=== PATIENT | female | born 2000 | race Caucasian/White ===

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

== ENCOUNTER 2023-06-26 01:16 | Observation (INO) ==
[2023-06-26] MEDS ORDERED: VANCOMYCIN CONSULT ACTIVE PRN (01:38)
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
[2023-06-26] MEDS: MoRPHine SULFATE 4 MG/ML 1 ML CARP\\VIAL IV STA (01:57)
[2023-06-26] MEDS: ONDANSETRON INJ 2 MG/ML 2 ML VIAL IV STA (01:57)
[2023-06-26 01:58] LABS: Hematocrit (blood only) 40.9 % (37.0-47.0); Hemoglobin 13.2 g/dl (12.0-16.0); Mean Corpuscular Hemoglobin 27.6 pg (25.0-34.0); Mean Corpuscular Hgb Conc 32.3 g/dL (32.0-36.0); Mean Corpuscular Volume 85.4 fL (80.0-100.0); Mean Platelet Volume 10.3 fL (9.4-12.4); Platelet Count 385 K/uL (130-400); RDW Coefficient of Variation 13.9 % (11.5-14.5); RDW Standard Deviation 43.6 fL (36.4-46.3); Red Blood Count 4.79 M/uL (4.20-5.40); White Blood Count 5.66 K/ul (4.8-10.8)
[2023-06-26] MEDS: cefTRIAXone SODIUM 2,000 MG/50 ML BAG IV STA (02:15)
[2023-06-26] MEDS: VANCOMYCIN HCL 2,000 MG in SODIUM CHLORIDE 0.9% 500 ML IV ONE (03:15)
[2023-06-26 04:10] LABS: ALC (manual) 3.45 K/uL (1.2-3.4); ANC (manual) 1.81 K/uL (1.4-6.5); Alanine Aminotransferase 16 U/L (7-52); Albumin Level 4.1 gm/dl (3.4-5.0); Alkaline Phosphatase 65 U/L (34-104); Anion Gap 10 (3-11); Aspartate Aminotransferase 15 U/L (13-39); BUN Creatinine Ratio 16.2 (10-20); Bilirubin Direct 0.1 mg/dl (0-0.2); Bilirubin,Total 0.2 mg/dl (0.2-1.0); Blood Urea Nitrogen 11 mg/dl (6-23); C Reactive Protein 0.87 mg/dl (0-0.5); Calcium 9.3 mg/dl (8.6-10.3); Carbon Dioxide 21 mmol/L (21-32); Chloride 107 mmol/L (98-107); Est GFR (African American) 143.9 ml/min; Est GFR (Non-African American) 124.2 ml/min; Glucose 100 mg/dl (70-99(Fasting)); Large Granular Lymph # (manua 0.96 K/uL; Large Granular Lymph % (manual) 17 %; Lymphocytes # (manual) 2.49 K/uL (1.2-3.4); Lymphocytes % (manual) 44 %; Magnesium 1.9 mg/dl (1.7-2.4); Monocytes % (manual) 7 %; Neutrophils # (manual) 1.81 K/uL (1.40-6.50); Neutrophils % (manual) 32 %; Potassium 4.1 mmol/L (3.5-5.1); RBC Morphology Unremarkable; Sodium 138 mmol/L (136-145); Total Protein 7.6 gm/dl (6.0-8.3)
--- NOTE | 2023-06-26 06:05 | Ultrasound Report ---
Exam(s): US VENOUS RIGHT LOWER EXTREMITY EXAM: US Duplex Right Lower Extremity Veins CLINICAL HISTORY: Pain TECHNIQUE: Real-time duplex ultrasound scan of the right lower extremity veins integrating B-mode two-dimensional vascular structure, Doppler spectral analysis, color flow Doppler imaging and compression. COMPARISON: 01/03/23 FINDINGS: Deep veins: Unremarkable. No Deep vein thrombosis in the visualized common femoral, femoral, proximal deep femoral or popliteal veins. The veins demonstrate normal color flow, are normally compressible, with normal phasic flow and/or augmentation response. Superficial veins: Unremarkable. No thrombus in the visualized great saphenous vein. Soft tissues: No acute findings. No popliteal cyst. IMPRESSION: No deep vein thrombosis of the right lower extremity. Electronically signed by: Michelle Lorenzo MD 06/26/23 03:56 AM
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
--- NOTE | 2023-06-26 07:14 | XRay Report ---
XR chest 1V portable CLINICAL HISTORY: Sepsis. COMPARISON STUDY: Chest radiograph April 18, 2022. FINDINGS: Lung volumes are normal. Lungs are clear. There is no pneumothorax or pleural effusion. Car diac size is normal. Mediastinal contours are normal. There is no evidence for pulmonary edema. IMPRESSION: No acute cardiopulmonary findings. ACT 112: Negative or not required by law. Electronically signed by: Cale Noguera M.D. 06/26/2023 7:13 AM
--- NOTE | 2023-06-26 07:20 | XRay Report ---
XR ankle RT min 3V routine CLINICAL HISTORY: Right heel pain. COMPARISON STUDY: Right ankle MRI 12/30/2022. FINDINGS: Soft tissue swelling within the right ankle. No acute fracture or dislocation. There is a 6 mm osteochondral defect at the lateral talar dome. The calcaneus is intact. Cortical irregularity at the anterior aspect of the distal tibia suggestive of subacute/healing fracture. IMPRESSION: 1. Cortical irregularity at the anterior aspect of the distal tibia suggestive of a subacute/healing fracture. 2. Otherwise, no acute fracture or dislocation within the right ankle. 3. Diffuse soft tissue swelling. 4. A 6 mm osteochondral defect at the lateral talar dome. ACT 112: Negative or not required by law. Electronically signed by: Jono Sherwood M.D. 06/26/2023 7:18 AM
[2023-06-26] MEDS: ACETAMINOPHEN 325 MG TAB PO PRN (09:25)
[2023-06-26] MEDS: SODIUM CHLORIDE 0.9% 1,000 ML IV SCH (09:28)
[2023-06-26] MEDS: Patient's HEIGHT &/or WEIGHT Needed STA (09:29)
--- NOTE | 2023-06-26 09:47 | Pharmacy Report ---
Pharmacy PK ABX Note - Date of Service June 26, 2023 - Assessment and Plan Assessment 22 year old F receiving ceftriaxone/vancomycin for treatment of possible ankle infection- post surgical intervention 2 weeks ago. Pertinent microbiologic data includes: blood cultures pending. Day # 1 of antimicrobial therapy. Plan Vancomycin * Loading dose: 2000 mg IV x 1 * Maintenance dose: 1250 mg IV every 8 hours * Regimen is predicted to achieve target AUC/DEV of 400-600 mg/L.hr * Trough level ordered for: 06/27/23 @1030 Pharmacy will continue to follow and will adjust dose/frequency as necessary. Thank you. Pharmacy has transitioned to AUC monitoring for vancomycin. AUC/DEV is the preferred PK/PD target and is associated with decreased risk of nephrotoxicity compared to traditional trough targets.
[2023-06-26] MEDS: VANCOMYCIN HCL 1,250 MG in SODIUM CHLORIDE 0.9% 250 ML IV SCH (10:39)
[2023-06-26] MEDS: RIVAROXABAN 10 MG TABLET PO SCH (11:28)
--- OUTSIDE RECORDS SUMMARY | 2023-06-26 13:18 | External Medical Summary | Summary of Care ---
Author Name Unknown Organization [facility] Address [address] [place] [address] Phone [phone] Care Team Providers Care Professor Of Medicine Name Role Phone Cherie Scott MD Primary Care Provider Reason for Visit * Reason Comments Acute Right ear infection. Was at the ER yesterday. Pt was given drops and told to f/u if things got worse. Pt to have surgery on for something else and does not want to have to change it. Encounter Details Date Type Department Care Team (Latest Contact Info) Description 06/08/2023 2:00 PM EDT Convenient Care Visit [facility] [address] [place] [address] Payal Parr CRNP [address] [place] [address] Acute mucoid otitis media of both ears* Allergies No known active allergiesdocumented as of this encounter (statuses as of 06/08/2023) Medications Medication Sig Dispensed Refills Start Date End Date Status EMOQUETTE 0.15-30 MG-MCG per tablet Take 1 Tablet by mouth in the morning. One tablet daily. 0 10/25/2014 Active Acetaminophen 500 MG Oral Tablet Take 2 Tablets by mouth every 6 hours as needed. 0 Active Ibuprofen 100 MG Oral Tablet Chewable (Motrin) Take 1 Tablet by mouth every 6 hours as needed. 0 Active Semaglutide-Weight Management 0.25 MG/0.5ML Subcutaneous Solution Auto-injectorIndica tions:Body mass index (BMI) of 45.0 to 49.9 in adult (HCC) Inject 0.25 mg under the skin once a week. 2 mL 2 01/23/2023 Active Meclizine HCl 25 MG Oral Tablet (Antivert)Indicatio ns:Benign paroxysmal positional vertigo, unspecified laterality Take 1 Tablet by mouth 3 times a day as needed for Dizziness. 30 Tablet 0 01/31/2023 Active Additional Information Patient not taking.Reported on 06/08/2023 traZODone HCl 50 MG Oral Tablet (Desyrel) Take 1 Tablet by mouth at bedtime as needed for Sleep. 30 Tablet 0 04/08/2023 Active Additional Information Patient not taking.Reported on 06/08/2023 Escitalopram Oxalate 20 MG Oral Tablet (Lexapro) Take 1 Tablet by mouth in the morning. 30 Tablet 1 04/29/2023 Active busPIRone HCl 5 MG Oral Tablet (Buspar) Take 1 Tablet by mouth 2 times a day. May also take 1 Tablet daily as needed for Anxiety. 90 Tablet 1 04/29/2023 Active Prazosin HCl 1 MG Oral Capsule (Minipress) Take 1 Capsule by mouth at bedtime. 30 Capsule 1 04/29/2023 Active Additional Information Patient not taking.Reported on 06/08/2023 Ciprofloxacin-dexAM ETHasone 0.3-0.1 % Otic Suspension (Cipro-Dex) 4 Drops in the morning and 4 Drops before bedtime. 0 06/08/2023 Active Amoxicillin-Pot Clavulanate 875-125 MG Oral Tablet (Augmentin)Indicati ons:Acute mucoid otitis media of both ears Take 1 Tablet by mouth in the morning and 1 Tablet before bedtime. Do all this for 10 days. 20 Tablet 0 06/08/2023 06/18/2023 Active Ibuprofen 800 MG Oral Tablet (Motrin)Indications :Acute mucoid otitis media of both ears Take 1 Tablet by mouth in the morning and 1 Tablet at noon and 1 Tablet before bedtime. with food for pain. 30 Tablet 1 06/08/2023 Active documented as of this encounter (statuses as of 06/08/2023) Active Problems Problem Noted Date Diagnosed Date PTSD (post-traumatic stress disorder) 01/15/2023 DELANEY (generalized anxiety disorder) 01/15/2023 Moderate episode of recurrent major depressive d isorder 01/15/2023 Body mass index (BMI) of 45.0 to 49.9 in adult 0 04/08/2022 Overview: Per Obesity protocol Fibroadenoma of breast, left 12/31/2021 Overview: Phylloides tumor, 2018. ?on R later, clip in place. [employer] at [employer]. Allergic rhinitis 12/12/2014 Allergic conjunctivitis 12/12/2014 Exercise-induced asthma 12/12/2014 documented as of this encounter (statuses as of 06/08/2023) Immunizations Name Administration Dates Next Due COVID-19 mRNA, LNP-s, No Pre serve, 2-Dose Series (Moderna) 07/15/2020,06/17/2020 COVID-19, mRNA, LNP-s, PF, B ooster, 100mcg/0.5mg (Moderna) 03/19/2021 HPV Vaccine, 4-Valent 05/10/2016 Meningococcal B, 2/3-Dose Series (TRUMENBA) 05/02 TDAP (age 10 and older)(Boostrix) 12/20/2022 documented as of this encounter Social History Tobacco Use Types Packs/Day Years Used Date Smoking Tobacco: Never Smokeless Tobacco: Never Comments:no passive smoke Alcohol Use Standard Drinks/Week Comments No 0 (1 standard drink = 0.6 oz pur e alcohol) PHQ-2 Answer Date Recorded PHQ Adult Total Score 10 01/14/2023 Hunger Vital Sign Answer Date Recorded Within the past 12 months, y ou worried that your food would run out before you got the money to buy more. Never true 01/01/20 Within the past 12 months, t he food you bought just didn't last and you didn't have money to get more. Never true 12/31/2021 Sex and Gender Information Value Date Recorded Sex Assigned at Female 12/31/2021 5:24 PM EDT Gender Identity Female 12/31/2021 5:24 PM EDT Sexual Orientation Straight 12/31/2021 5: 24 PM EDT Job Start Date Occupation Industry Not on file Not on file Not on file documented as of this encounter Last Filed Vital Signs Vital Sign Reading Time Taken Comments Blood Pressure 134/90 06/08/2023 1:50 PM EDT Pulse 76 06/08/2023 1:50 PM EDT Temperature 36.8 C (98.3 F) 06/08/2023 1:50 PM ED T Respiratory Rate 16 06/08/2023 1:50 PM EDT Oxygen Saturation 98% 06/08/2023 1:50 PM EDT Inhaled Oxygen Concentration - - Weight 147 kg (324 lb) 06/08/2023 1:50 PM EDT Height 172.7 cm (5' 8") 06/08/2023 1:50 PM EDT Body Mass Index 49.26 06/08/2023 1:50 PM EDT documented in this encounter Progress Notes * Payal Parr CRNP - 06/08/2023 2:09 PM EDT Subjective Nica Pillai is a 22 year old female that presents for Acute (Right ear infection. Was at the ER yesterday. Pt was given drops and told to f/u if things got worse. Pt to have surgery on for something else and does not want to have to change it. ) HPI: Patient presents with right ear pain that started 4 days ago. Patient states that she just flew back from a trip in the [facility] yesterday and had been swimming etc. She developed ear pain, mostly right, but after yesterday's plane ride home she was in excruciating pain. She was at the ED last night and prescribed prescription ear drops for an otitis externa, as they were not able to visualize the ear drum. She presents today in tears with bilateral ear pain right worse than left. Sharp stabbing and throbbing. Denies any fevers. She has taken tylenol and ibuprofen with little to no relief. She denies any drainage or discharge. Patient is to have ankle surgery in one week. Denies any acute URI symptoms REVIEW OF SYSTEMS: See HPI for pertinent positives. All others negative other than those noted in the HPI. CONSTITUTIONAL: No change in weight, No weakness, No fatigue and No fevers, No sweats or chills. PULMONARY: No cough, sputum, or hemoptysis, No wheezing, No shortness or breath and No recent change in breathing. CARDIOVASCULAR: No chest pain, No dyspnea on exertion, No edema, No palpitations and No syncope. GASTROINTESTINAL: No abdominal pain, No change in bowel habits, No significant heartburn, No nausea, No vomiting, No diarrhea, No constipation, No blood in stools or black tarry stools. No dysphagia. HEMATOLOGIC: No abnormal bleeding and No bruising. NEUROLOGICAL: Normal balance, No headaches and No weakness. Objective BP 134/90 | Pulse 76 | Temp 36.8 C (98.3 F) | Resp 16 | Ht 1.727 m (5' 8") | Wt (!) 147 kg (324lb) | SpO2 98% | BMI 49.26 kg/m | BSA 2.66 m Body mass index is 49.26 kg/m. BP Readings from Last 3 Encounters: 06/08/23 134/90 01/31/23 106/70 01/21/23 110/76 Wt Readings from Last 3 Encounters: 06/08/23 (!) 147 kg (324 lb) 04/09/23 (!) 147.6 kg (325 lb 8 oz) 01/31/23 (!) 147.4 kg (324 lb 14.4 oz) Physical Exam Constitutional: Appearance: She is ill-appearing. HENT: Head: Normocephalic and atraumatic. Right Ear: External ear normal. Swelling present. Tympanic membrane is erythematous. Left Ear: Ear canal and external ear normal. Tympanic membrane is erythematous. Nose: Nose normal. Mouth/Throat: Mouth: Mucous membranes are moist. Pharynx: Oropharynx is clear. Eyes: Extraocular Movements: Extraocular movements intact. Conjunctiva/sclera: Conjunctivae normal. Pupils: Pupils are equal, round, and reactive to light. Cardiovascular: Rate and Rhythm: Normal rate and regular rhythm. Pulses: Normal pulses. Heart sounds: Normal heart sounds. Pulmonary: Breath sounds: Normal breath sounds. Musculoskeletal: General: Normal range of motion. Cervical back: Normal range of motion and neck supple. Lymphadenopathy: Cervical: Cervical adenopathy present. Skin: General: Skin is warm and dry. Neurological: General: No focal deficit present. Mental Status: She is alert and oriented to person, place, and time. Psychiatric: Behavior: Behavior normal. Thought Content: Thought content normal. Judgment: Judgment normal. Comments: Tearful, In extreme pain None Assessment and plan 1. Acute mucoid otitis media of both ears - Amoxicillin-Pot Clavulanate 875-125 MG Oral Tablet (Augmentin); Take 1 Tablet by mouth in the morning and 1 Tablet before bedtime. Do all this for 10 days. Dispense: 20 Tablet; Refill: 0 - Ibuprofen 800 MG Oral Tablet (Motrin); Take 1 Tablet by mouth in the morning and 1 Tablet at noonand 1 Tablet before bedtime. with food for pain. Dispense: 30 Tablet; Refill: 1 -Continue the prescription ear drops in the right ear in conjunction with oral medications. -May incorporate tylenol as needed. -Warm compresses to the ears -Avoid any water in the ears, use ear plugs if going to have head submerged swimming etc. Follow up Follow Up: Return if symptoms worsen or fail to improve. Total time today including reviewing chart before the visit, pertinent labs, imaging reports, face to face time, and documentation time was 17 minutes. The above was discussed and understanding was expressed. ARMIN Crook documented in this encounter Plan of Treatment Health Maintenance Due Date Last Done Comments Pneumococcal Vaccine: Pediat rics (0 to 5 Years) and At-Risk Patients (6 to 64 Years) (1 of 2 - PCV) 2006 Gonorrhea / Chlamydia Screen 08/06/2015 HIV Screening 08/06/2015 Hepatitis C Screening 2018 Pap Smear 2021 COVID-19 Vaccine (4 - 2022-2 4 season) 2022 03/19/2021, 07/15/2020, 06/17/2020 Influenza Vaccine (FLU shot) (#1) 2022 Depression, Most Recent Scor e >= 10 (will fire each visit until score < 10) 01/15/2023 01/14/2023 DTaP,Tdap,and Td Vaccines (7 - Td or Tdap) 12/20/2032 12/20/2022, 10/31/2005, 12/03/2001, Additional history exists Hepatitis B Completed 08/17/2001, 11/29, 2000 GARDASIL-HPV IMMUNIZATION SERIES Completed 09/09/2016, 05/10/2016, 05/10/2016, Additional history exists MENINGOCOCCAL (MENACTRA/MENVEO) Completed 11/19/2012 documented as of this encounter Medical Devices Not on filedocumented as of this encounter Visit Diagnoses Diagnosis Acute mucoid otitis media of both ears- Primary documented in this encounter Care Teams Professor Of Medicine Relationship Specialty Start Date End Date Cherie Scott MD [address] [place] [id number] PCP - General Internal Medicine 12/31/21 documented as of this encounter
[2023-06-26] MEDS: HYDROmorphone INJ 0.5 MG/0.5 ML SYR IV PRN (13:30)
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
[2023-06-26 16:12] LABS: Appearance Urine Clear (Clear); Bilirubin Urine Negative (Negative); Blood Urine Negative (Negative); Color Urine Yellow; Glucose Urine UA Negative (Negative); Ketones Urine Negative (Negative); Leukocyte Esterase Urine Negative (Negative); Nitrite Urine Negative (Negative); Protein Urine Negative (Negative); Specific Gravity Urine 1.009 (1.000-1.030); Urobilinogen Urine Negative (Negative)
--- NOTE | 2023-06-26 16:35 | Communication Note ---
Date of Service: June 26, 2023 22-year-old female was admitted early this morning with acute right ankle pain with status post Right Ankle Arthroscopy, Talus Microfracture with Allograft Biocartilage, Loose Body Removal,(Right) - Cecilio Cruz MD s Open Brostrom Ligament Repair with Internal Brace, Peroneal Tendon Repair(Right) - Cecilio Cruz MD on 06/12/2023. Right ankle is minimally swollen and tender to palpate with increased local temperature without any evidence of increased white count or fever and or chills. Appreciate Ortho input and recommendation. Remains hemodynamically stable and will have full progress note tomorrow. Dr Sherry george
[2023-06-26] MEDS: cefTRIAXone SODIUM 2,000 MG in DEXTROSE 5 % MINI-B 50 ML IV SCH (21:08)
[2023-06-27] MEDS ORDERED: oxyCODONE HCL IR 5 MG TAB (IMMEDIATE RELEASE) PO PRN (00:46)
[2023-06-27] MEDS: PROMETHAZINE HCL 12.5 MG in SODIUM CHLORIDE 0.9% 50 ML IV PRN (01:02)
[2023-06-27] MEDS: POLYETHYLENE (MIRALAX) 17 GM PACK PO PRN (01:04)
[2023-06-27 06:57] LABS: Hematocrit (blood only) 36.2 % (37.0-47.0); Mean Corpuscular Hemoglobin 28.1 pg (25.0-34.0); Mean Corpuscular Hgb Conc 33.1 g/dL (32.0-36.0); Mean Corpuscular Volume 84.8 fL (80.0-100.0); Mean Platelet Volume 10.8 fL (9.4-12.4); Platelet Count 310 K/uL (130-400); RDW Coefficient of Variation 14.2 % (11.5-14.5); Red Blood Count 4.27 M/uL (4.20-5.40); White Blood Count 4.46 K/ul (4.8-10.8)
[2023-06-27 07:01] LABS: Anion Gap 5 (3-11); Blood Urea Nitrogen 8 mg/dl (6-23); Calcium 8.8 mg/dl (8.6-10.3); Carbon Dioxide 24 mmol/L (21-32); Chloride 110 mmol/L (98-107); Creatinine Clr Calc Pharmacy 237.6 ml/min; Est GFR (African American) > 150.0 ml/min; Est GFR (Non-African American) 131.6 ml/min; Glucose 94 mg/dl (70-99(Fasting)); Potassium 3.9 mmol/L (3.5-5.1); Sodium 139 mmol/L (136-145)
[2023-06-27 07:14] LABS: Basophils # (auto) 0.02 K/uL (0.00-0.20); Basophils % (auto) 0.4 %; Eosinophils # (auto) 0.08 K/uL (0.00-0.50); Eosinophils % (auto) 1.8 %; Immature Granulocytes # (auto) 0.02 K/uL (0.01-0.20); Immature Granulocytes % (auto) 0.4 %; Lymphocytes # (auto) 2.27 K/uL (1.20-3.40); Lymphocytes % (auto) 50.9 %; Monocytes # (auto) 0.42 K/uL (0.11-0.59); Monocytes % (auto) 9.4 %; Neutrophils # (auto) 1.65 K/uL (1.40-6.50); Neutrophils % (auto) 37.1 %
[2023-06-27] MEDS: VANCOMYCIN LEVEL ONE (11:37)
--- NOTE | 2023-06-27 12:11 | Discharge Summary ---
Discharge Summary Date of Service June 27, 2023 Notes For Next Care Provider Pressure sore from splint, outpatient Ortho follow-up today Medication Changes From Visit percocet, transition to tylenol Admission HPI Per Admitting Provider 22-year-old female with past medical history significant for allergic rhinitis, exercise-induced asthma, morbid obesity, history of depression, PTSD, generalized anxiety disorder who recently couple of weeks ago had right ankle surgery and on Xarelto for DVT prophylaxis comes because of severe pain in the right ankle and heel starting yesterday. She states she had low-grade temps on the weekend. The pain was not getting better and came to the ER. Has some headache. No runny nose or sore throat. No cough. No chest pain or shortness of breath. No nausea. No abdominal pain. Normal bowel and bladder movements. Hemodynamics are okay. Past medical history. As mentioned above Past surgical history. Left breast surgery. Laparoscopic appendectomy. Right ankle surgery. Social history. No smoking. No alcohol use. No drug use. Family history. Father has allergies. Heart disease. Mother has allergies. Sister has allergies. Maternal grandmother had breast cancer. Dementia. Paternal grandmother had COPD. Maternal grandfather had heart attack. Admission Exam Per Admitting Provider General- Not in distress Head- atraumatic Eyes- PERRL. ENT- oropharynx clear Neck- supple, no JVD. Lungs- clear to auscultation no wheezing or crackles. Heart- regular rhythm; no murmur, no gallop. Abdomen- normal bowel sounds, soft, nontender, no distension Extremities- right ankle lateral aspect surgery site o erythema or drainage seen. Right Heel is tender and tense Neuro- alert, oriented PERRL, no facial palsy; no dysarthria; obeys commands. Principal Dx & Hospital Course #1 = Principal Diagnosis (1) Acute ankle pain: This is a 22-year-old female with past medical history significant for allergic rhinitis, exercise-induced asthma, morbid obesity, history of depression, PTSD, generalized anxiety disorder who recently couple of weeks ago had right ankle surgery and on Xarelto for DVT prophylaxis comes because of severe pain in the right ankle and heel starting yesterday. S/p Right Ankle Arthroscopy, Talus Microfracture with Allograft Biocartilage, Loose Body Removal,(Right) and Open Brostrom Ligament Repair with Internal Brace, Peroneal Tendon Repair(Right) by Dr. Cruz on 06/12/2023 who presented with ankle pain and low-grade fevers that started over the weekend. There was initial concern for infection and was started on empiric Rocephin and Vanco. Was evaluated by orthopedic service who feel patient is appropriate to transition outpatient care will follow-up in clinic this afternoon to be fitted with a boot and have sutures removed. Feel that she was getting a pressure sore from her splint and that antibiotics can be discontinued. Recommend continuing nonweightbearing status on right lower extremity with a light dressing and follow-up with Dr. Cruz this afternoon. Patient instructed to continue Tylenol with oxycodone to be used sparingly for breakthrough pain. Comfortable and hemodynamically stable at time of discharge home. Discharge Exam Gen: WD/WN, NAD, resting in bed, obese, A&Ox3 HEENT: Normocephalic, atraumatic, conjunctivae moist, sclerae anicteric, mucous membranes moist Lung: Clear to Auscultation bilaterally, no wheezes/rales/rhonchi Heart: Regular rate, regular rhythm, no murmurs, rubs, or gallops Abdomen: Soft, NT, ND +BS x 4 Extremities: + RLE with well healing incisions, sutures visualized. TTP, no warmth to touch, heel with dressing in place Skin: Warm, no rash Updated Medication List Medication Instructions Recorded Confirmed Type rivaroxaban 10 mg tablet (Xarelto) 10 mg PO DAILY 06/26/23 06/26/23 History oxycodone 5 mg tablet 5 - 10 mg (1 - 2 x 5 mg) PO Q6H 06/27/23 06/27/23 Rx PRN pain #18 tabs Hospital Stay Data Consultations 06/26/23 04:25 ED Decision to Admit Stat Diagnostic Imagining Performed 06/26/23 01:40 US venous doppler LE RT Stat 06/26/23 04:05 CT ankle RT wo con Stat Pending Results Patient Have Any Pending Studies at Discharge: No Discharge Instructions Given to Patient (Per Discharging Provider) Keep the incisional area clean and dry. Report to the orthopedic clinic at discharge for boot fitting, suture removal, and advancement of plan of care. Total Time Total Time Spent Total Time Spent (In Minutes): 40 Supervising Physician Co-Signing Physician Notes Attending addendum The patient was seen and examined in medical floor in presence of the mother Her pain seems to be reasonably controlled Swelling of the right ankle and redness have improved Blood culture has been negative and no other signs of infection On examination Lying in bed without any acute distress Remains hemodynamically stable Chest-clear to auscultate bilaterally Heart-S1-S2, regular Abdomen-benign Extremities-right ankle swelling has reduced with decreasing swelling and re dness and also warmth. Movement remains minimally painful Labs were reviewed, medications reviewed Appreciate Ortho input and recommendation Does not require any antibiotic on discharge He will be discharged this afternoon He will a follow-up appointment with Ortho as an outpatient Agree with assessment and plan as outlined above by SANKET Damon Dr
--- NOTE | 2023-06-30 10:22 | CT Scan Report ---
Exam(s): CT EXTREMITY RIGHT LOWER EXAM: CT Right Lower Extremity Without Intravenous Contrast CLINICAL HISTORY: right ankle swelling and pain, s/p ankle surgery about two weeks ago TECHNIQUE: Axial computed tomography images of the right lower extremity without intravenous contrast. CTDI is 24.91 mGy and DLP is 439.24 mGy-cm. Automated exposure control was utilized for the study. A dose lowering technique was utilized adhering to the principles of ALARA. COMPARISON: No relevant prior studies available. FINDINGS: Bones/joints: Mild osteoarthritic changes seen at the ankle joint. There is cortical discontinuity seen on the lateral aspect of the lateral malleolus best seen on coronal image 46. Soft tissue edema seen over the lateral malleolus IMPRESSION: Cortical discontinuity seen on the lateral aspect of the lateral malleolus is suggestive of a fracture Electronically signed by: Uvaldo Trujillo MD 06/26/23 05:35 AM
== END 2023-06-27 12:46 | disposition home or self-care (01) ==
LOC: ED 01:16 → SUATTDRO 05:56 → 3N 05:56 → INTOOBSV 05:56 → 3N 09:10